=== PATIENT | female | born 1950 | race Caucasian/White ===

== ENCOUNTER 2023-01-29 05:13 | Day surgery (SDC) | payer MEDICARE ==
[2023-01-22 14:56] LABS: CLARITY,URINE CLEAR (Clear); COLOR,URINE YELLOW (Yellow); GLUCOSE, URINE NEGATIVE (Neg); KETONES,URINE NEGATIVE (Neg); LEUKOCYTE ESTERASE ,URINE NEGATIVE (Neg); NITRITES, URINE NEGATIVE (Neg); OCCULT BLOOD,URINE NEGATIVE (Neg); PROTEIN,URINE NEGATIVE (Neg); UROBILINOGEN,URINE 0.2 E.U/dL (0.2-1.0)
[2023-01-22 14:57] LABS: UA COLLECTION TYPE CLN CATCH MIDSTREAM
[2023-01-22 15:01] LABS: BASOPHILS # (AUTO) 0.1 X10'3 (0-0.2); BASOPHILS % (AUTO) 0.9 % (0-1); EOSINOPHILS # (AUTO) 0.1 X10'3 (0-0.9); EOSINOPHILS % (AUTO) 0.9 % (0-6); LYMPHOCYTES # (AUTO) 3.6 X10'3 (1.1-4.8); LYMPHOCYTES % (AUTO) 50.6 % (21-51); MEAN CORPUSCULAR HEMOGLOBIN 28.3 PG (27.0-31.0); MEAN CORPUSCULAR HGB CONC 32.7 g/dL (33.0-36.5); MEAN CORPUSCULAR VOLUME 86.5 FL (78-98); MEAN PLATELET VOLUME 7.3 FL (7.4-10.4); MONOCYTES # (AUTO) 0.5 X10'3 (0-0.9); MONOCYTES % (AUTO) 6.8 % (2-12); NEUTROPHILS # (AUTO) 2.9 X10'3 (1.8-7.7); NEUTROPHILS % (AUTO) 40.8 % (42-75); PRE OP HEMATOCRIT 40.6 % (35.0-45.0); PRE OP HEMOGLOBIN 13.3 g/dL (12.0-16.0); PRE OP PLATELET COUNT 324 X10'3 (140-440); RED BLOOD COUNT 4.69 X10'6 (4.20-5.60); RED CELL DISTRIBUTION WIDTH 15.2 % (11.5-14.5)
[2023-01-22 15:18] LABS: ALKALINE PHOSPHATASE 105 IU/L (46-116); BLOOD UREA NITROGEN 29 MG/DL (7-18); BUN/CREATININE RATIO 26.4 (10.0-20.0); CALCIUM 9.7 MG/DL (8.5-10.1); CHLORIDE 101 MMOL/L (99-107); PRE OP ALT 27 U/L (30-65); PRE OP ANION GAP 11 (8-16); PRE OP AST 24 U/L (10-37); PRE OP BILIRUB, TOTAL 0.5 MG/DL (0.0-1.0); PRE OP GLUCOSE 93 MG/DL (70-104); PRE OP POTASSIUM 3.5 MMOL/L (3.4-5.1); PRE OP SODIUM 139 MMOL/L (135-145); TOTAL PROTEIN 7.9 G/DL (6.4-8.2); eGFR 49 ML/MIN
[2023-01-29] VITALS (9 sets, daily range): BP systolic 112–153; BP diastolic 64–96
[~2023-01-29] VITALS: Ht 167.6 cm; Wt 89.3 kg
[~2023-01-29 05:13] MED LIST: ANAS1TAB10 PO; ATOR40TA72 PO; HYDR12.55 PO
[2023-01-29] MEDS: famotidine 20mg tablet PO ONE (05:59)
[2023-01-29] MEDS: ringers solution, lacted 1,000 ML IV SCH (06:00)
[2023-01-29] MEDS: cefazolin 2gm/D5W 100mL 100 ML IV ONE (06:01)
[2023-01-29] MEDS ORDERED: BUPIVAcaine/PF 2.5 mg/ml (0.25%) 30ml vial ONE (07:05)
[2023-01-29] MEDS ORDERED: bacitracin 15gm ointment TP ONE (07:10)
[2023-01-29] MEDS ORDERED: sevoflurane 250ml liquid IH ONE (07:32)
[2023-01-29] MEDS ORDERED: midazolam 1 mg/ML 2ml injection ONE (07:34)
[2023-01-29] MEDS ORDERED: ROPIVAcaine 0.5% (5mg/ml) 30ml vial ONE (07:51)
[2023-01-29] MEDS ORDERED: fentaNYL /PF 50mcg/ml 5ml ampule ONE (07:51)
[2023-01-29] MEDS ORDERED: ondansetron/PF 4mg/2ml inj IV PRN (08:00)
[2023-01-29] MEDS ORDERED: proCHLORperazine 10 MG/2 ml inj IV PRN (08:00)
[2023-01-29] MEDS ORDERED: morphine 2 MG/ML inj. syringe IV PRN (08:00)
[2023-01-29] MEDS ORDERED: acetaminophen 1,000mg/100ml IV 100 ML IV PRN (08:00)
[2023-01-29] MEDS ORDERED: ringers solution, lacted 1,000 ML IV SCH (08:00)
[2023-01-29] MEDS ORDERED: labetalol 20mg/4ml (5mg/ml) syringe IV PRN (08:00)
[2023-01-29] MEDS ORDERED: HYDROmorphone/PF 0.2 MG/ML SYRINGE IV PRN ×2 (08:00)
[2023-01-29] MEDS ORDERED: hydrALAZINE 20mg/ml inj. IV PRN (08:00)
[2023-01-29] MEDS ORDERED: morphine 4 MG/ML inj SYRINge IV PRN (08:00)
[2023-01-29] MEDS ORDERED: propofol inj 20 ML IV ONE (08:04)
[2023-01-29] MEDS ORDERED: ePHEDrine 50MG/ML INJ. ONE (08:04)
[2023-01-29] MEDS ORDERED: ondansetron/PF 4mg/2ml inj ONE (08:04)
[2023-01-29] MEDS ORDERED: dexamethasone sod phosphate 4mg/ml inj. ONE (08:04)
[2023-01-29] MEDS ORDERED: LIDOcaine 2% (20mg/ml) 5ml vial ONE (08:04)
[2023-01-29] MEDS: ROPIVAcaine 0.5% (5mg/ml) 30ml vial IJ ONE (08:47)
[2023-01-29] MEDS: bacitracin 15gm ointment TP ONE (09:08)
--- NOTE | 2023-01-29 09:24 | NUR ---
Received from OR via [facility] IN STABLE CONDITION , accompanied by Anesthesiologist and REPORTS DEVELOPER report given by REPORTS DEVELOPER AND Anesthesiolgist. Addendum: 01/29/23 at 1001 by Estee Hugo RN Amended: Links added.
--- NOTE | 2023-01-29 10:54 | NUR ---
PATIENT DISCHARGED FROM PACU IN STABLE CONDITION AFTER WRITTEN AND VERBAL DISCHARGE INSTRUCTIONS GIVEN. PATIENT GAVE VERBAL UNDERSTANDING OF INSTRUCTIONS GIVEN. PATIENT LEFT FACILITY VIA WHEELCHAIR WITH RN. Addendum: 01/29/23 at 1123 by Estee Hugo RN Amended: Links added.
== END 2023-01-29 10:54 | disposition home or self-care (01) ==
LOC: PAS 05:13
PROVIDERS: ATTEND Podiatrist Foot & Ankle Surgery
DX: S92.251A Displaced fracture of navicular [scaphoid] of right foot, initial encounter for closed fracture (principal); X58.XXXA Exposure to other specified factors, initial encounter; M19.071 Primary osteoarthritis, right ankle and foot; Y93.89 Activity, other specified; Y92.89 Other specified places as the place of occurrence of the external cause; Y99.8 Other external cause status; Z79.899 Other long term (current) drug therapy; Z90.11 Acquired absence of right breast and nipple; Z98.890 Other specified postprocedural states; Z87.891 Personal history of nicotine dependence; I10 Essential (primary) hypertension; M10.9 Gout, unspecified
CPT/HCPCS: 20902; 28465; 36415; 73620; 80053; 81003; 82948; 85025; A6223; C1713; J0690; J1100; J2250; J2405; J2704; J2795; J3010; J3490; J7030; J7120; Z7506; Z7508; Z7512; 76000; A4618; A6449; A7000; C1769

== ENCOUNTER 2025-01-10 11:46 | Outpatient (CLI) | payer MEDICARE | END 2025-01-10 23:59 | disposition home or self-care (01) | LOC: MRI 11:46 | PROVIDERS: ATTEND Podiatrist Foot & Ankle Surgery | DX: M77.31 Calcaneal spur, right foot (principal); M25.571 Pain in right ankle and joints of right foot; M85.671 Other cyst of bone, right ankle and foot | CPT/HCPCS: 73721 ==